=== PATIENT | male | born 1985 | race Caucasian/White ===

== ENCOUNTER 2020-02-26 17:47 | Emergency (ER) | payer OTHER ==
[~2020-02-26] VITALS: Ht 172.7 cm; Wt 97.1 kg
[2020-02-26 17:52] VITALS: BP 142/100
== END 2020-02-26 19:35 | disposition home or self-care (01) ==
LOC: ED 19:00
DX: K62.5 Hemorrhage of anus and rectum (principal); K64.8 Other hemorrhoids; R10.2 Pelvic and perineal pain; F17.210 Nicotine dependence, cigarettes, uncomplicated
CPT/HCPCS: 99282; 99406